=== PATIENT | male | born 1950 | race Caucasian/White ===

== ENCOUNTER 2024-08-14 07:25 | Inpatient (IN) | payer MEDICARE ==
[2024-08-14] VITALS (16 sets, daily range): BP systolic 101–173; BP diastolic 66–75; PULSE 53–80; RESP 13–20; TEMP 97.7; O2SAT 93–98
[~2024-08-14] VITALS: Ht 188 cm; Wt 88.9 kg
[~2024-08-14 07:25] MED LIST: ALBUAER3 IN; AMLO1TAB22 PO; ASPI-378 OR; ATOR20TA PO; ESOM20CA PO; LEVO125T7 PO; LORA-622 PO; MULTTAB5 OR
[2024-08-14] MEDS ORDERED: EPINEPHrine HCL 1 MG/1 ML AMP ONE (09:15)
[2024-08-14] MEDS ORDERED: KETOROLAC TROMETH 30 MG/ML 1ML VIAL ONE (09:17)
[2024-08-14] MEDS ORDERED: TETRACAINE 1% INJ 2 ML VIAL IJ ONE (10:01)
[2024-08-14] MEDS ORDERED: MORPHINE SULF PF 5 MG/10 ML VIAL ONE (10:02)
[2024-08-14] MEDS ORDERED: MIDAZOLAM HCL 2MG/2ML 2ml VIAL (1mg/ml) ONE (10:03)
[2024-08-14] MEDS ORDERED: fentaNYL CITRATE 100 MCG/2 ML VL ONE (10:03)
[2024-08-14] MEDS: CEFEPIME 1GM/ 50ML 50 ML IV ONE (10:17)
[2024-08-14] MEDS: TRANEXAMIC ACID 20 ML ONE (10:17)
[2024-08-14] MEDS ORDERED: PROPOFOL 10 MG/ML 20 ML IV ONE (10:33)
[2024-08-14] MEDS ORDERED: DexAMETHasone SOD PHOS 10MG/1ML VIAL INJ ONE (10:33)
[2024-08-14] MEDS ORDERED: ePHEDrine SULFATE 50 MG/ML AMP IV PRN (10:45)
[2024-08-14] MEDS ORDERED: ONDANSETRON HCL 4 MG/2 ML VIAL IV PRN (10:45)
[2024-08-14] MEDS ORDERED: MIDAZOLAM HCL 2MG/2ML 2ml VIAL (1mg/ml) IV PRN (10:45)
[2024-08-14] MEDS ORDERED: DexAMETHasone SOD PHOS 10MG/1ML VIAL INJ IV PRN (10:45)
[2024-08-14] MEDS ORDERED: HYDROmorphone HCL 2 MG/ML VL/or syr IV PRN (10:45)
[2024-08-14] MEDS ORDERED: hydrALAZINE HCL 20 MG/ML VL IV PRN (10:45)
[2024-08-14] MEDS: VANCOMYCIN HCL 1000 MG VL ONE (11:08)
[2024-08-14] MEDS: ceFAZolin 2 GM/D5W100ml 100 ML IV ONE (11:10)
[2024-08-14] MEDS ORDERED: ROPIVACAINE 0.5% (5MG/ML) 20ML AMPULE IJ ONE (11:18)
--- NOTE | 2024-08-14 12:32 | DVHOP2 ---
Operative Report - 2 Report Details Date: 08/14/24 Preop Diagnosis: Left knee posttraumatic degenerative arthritis Retained ACL hardware Postop Diagnosis: Same Surgeon: Vania Farnsworth MD Traveling Nurse: Zechariah SALMERON Anesthesiologist: Jatinder Anesthesia: General, Local Drains: Ysabel closed wound suction Implant: DonJoy knee size nine femur PS, size nine it tibial base plate, size 14 polyethylene, size 35 patella Consent: The patient was informed of the risks and benefits of the procedure. These include but are not limited to complications of anesthesia, postoperative infection, incomplete relief of symptoms, recurrence of symptoms, damage to blood vessels, nerves and tendons, deep venous thrombosis, pulmonary embolism and possible need for repeat surgery in the future. Complications: None Estimated Blood Loss: 25 cc Fluids: See anesthesia record Findings: Denuded cartilage with eburnated bone, osteophytes, retained interference screw and two melanie Indications for Surgery: Left knee degenerative arthritis with severe pain and functional impairment despite nonoperative management Name of Procedure Performed Left total knee arthroplasty Hardware removal Procedure Details Procedure Details: The patient was brought to the operating room and placed on the table in the supine position after being given spinal anesthetic with adequate analgesia obtained. Surgical timeout was performed verifying patient, laterality and procedure Preop patient received IV cefepime IV Ancef and IV tranexamic acid. Tourniquet was applied to the lower extremity. Extremity was elevated, exsanguinated Esmarch, and tourniquet inflated. Lower extremity was prepped and draped in sterile fashion. Midline incision was made followed by medial arthrotomy. I exposed the anterior medial and lateral tibial plateau and the anterior distal femur. Bovie and aqua mantis were used for hemostasis. I excised the anterior meniscal tissue with Bovie. I excised a portion of the fat pad with Bovie. The patella was everted and the knee flexed. I dissected elevating soft tissue medially and slightly was able to identify the two fixation melanie in the proximal medial tibia. I used a drill and elevators to free up the two melanie which were then easily removed. I drilled the distal femur and suctioned the hole to reduce the risk of fat emboli. I inserted intramedullary guide with 5 degree valgus setting. I pinned the distal femoral cutting block anteriorly. Intramedullary rojelio was removed. Distal femoral cut was made and the block removed. I brought my attention to the tibia setting up the external cutting jig for the tibia paying attention to slope, rotation and varus valgus alignment. I set the depth and pinned the block. I used the external alignment rojelio to aid in checking alignment. Bone cut was made and bone removed releasing soft tissue attachments with Bovie. Cutting block removed. I then checked the extension gap and deemed adequate and removed the femur and tibia pins. I flexed the knee and applied the femoral sizing guide to the femur. I checked the size and external rotation setting at 90 degrees to Whitesides line and checking the epicondylar axis. I drilled the holes then removed the sizing guide and pin. I then tapped on the 4 in 1 cutting block and checked with the keli wing anteriorly to make sure that I would not notch then pinned the block. Cuts were made and the block and pins were removed. Bone was removed with curved osteotome. I used a rongeur to remove any remaining osteophytes at the femur and tibia. I then used a lamina property management assistant to open up the back alternating between the medial and lateral side. Any remaining meniscal tissue was excised with scalpel. I used curved osteotome, curette and rongeur to remove any posterior osteophytes. I prophylactically coagulated with aqua mantis. I then tapped on the template for the box cut and pinned it. Box cut was made and bone removed. At this point the metal interference screw was obvious so I used a drill around the edges of the interference screw and then this way I was able to remove it with Sam. Template and pin removed. I then tapped on the femoral trial. I then brought my attention back to the tibia sizing it. I used the external alignment rojelio to make sure that rotation and alignment were good. I made a Bovie poncho at the tibial tray poncho identifying rotation for later use. I tried various tibial polytrials. [I then brought my attention to the patella. I sequentially dissected soft tissue with Bovie. I checked the thickness with caliper. I set the appropriate depth of cut on the cutting guide. I attached the cutting guide made my cut. I then sized the patella and made my drill holes. I then placed the patella trial with appropriate depth based on overall precut thickness. ] The patella tracked nicely without thumb pressure. I removed the trials. I pinned the tray and used the reamer and keel punch. The implants were brought into the field while bone preparation was started. I used both normal saline irrigation and the CarboJet to prepare the bone. Once cement was ready I applied cement to the tibial implant and tibial bone tapped it on and removed excess cement in usual fashion. In similar fashion I tapped on the femoral implant. I inserted the trial polyethylene and brought the knee into 30 degrees flexion. [I then applied the patella implant in similar fashion holding pressure with the pressurization device.] I irrigated with xperience irrigant. Once cement cured, I checked stability and range of motion as well as patella tracking. tourniquet was released and hemostasis maintained with aqua mantis. I inserted the polyethylene and again checked stability. I used a 2 grams of vancomycin half of which was placed deep and half superficial. I repaired the extensor mechanism with the knee in flexion with #1 Ethibond interrupted [id number]. Deep subcutaneous tissue was closed with 0 Vicryl. Superficial subcutaneous tissue was closed with 2-0 vicryl interrupted. Skin was closed with melanie. I then applied the [ysabel closed wound suction]. Patient tolerated the procedure well and was brought to recovery room in stable condition. Condition Stable Disposition Still a Patient VANIA FARNSWORTH MD Aug 14, 2024 12:32
[2024-08-14] MEDS ORDERED: ALBUTEROL SULF HFA 90MCG INH 200DOSE IN SCH (12:45)
[2024-08-14] MEDS ORDERED: oxyCODONE HCL 5MG TAB PO PRN ×2 (12:45)
[2024-08-14] MEDS ORDERED: ALBUTEROL SULF 2.5 MG/0.5ML(0.5%) NEB SOLN NEB PRN (12:45)
--- NOTE | 2024-08-14 13:07 | DVH ---
CLINICAL INDICATION: Postop TECHNIQUE: XY L KNEE 3V XRAY Comparison: None FINDINGS/IMPRESSION: : No acute fracture or dislocation. Expected findings post left knee arthroplasty.
[2024-08-14] MEDS: D5W/LACTATED RINGERS 1,000 ML IV SCH (14:30)
[2024-08-14] MEDS ORDERED: PHENYLEPHRINE HCL 10 MG/ML VL IV ONE (14:45)
[2024-08-14] MEDS: ACETAMINOPHEN 325 MG TAB PO SCH (18:00)
[2024-08-14] MEDS: KETOROLAC TROMETH 30 MG/ML 1ML VIAL IV SCH (18:00)
[2024-08-14] MEDS: ceFAZolin 2 GM/D5W50ml 50 ML IV SCH (18:46)
[2024-08-14] MEDS: PREGABALIN 25 MG CAP PO SCH (21:39)
[2024-08-15] VITALS (18 sets, daily range): BP systolic 115–141; BP diastolic 51–80; PULSE 54–90; RESP 16–20; TEMP 97.8–98.7; O2SAT 92–97
[2024-08-15] MEDS: LEVOTHYROXINE SODIUM 125 MCG PO SCH (06:17)
[2024-08-15] MEDS: LORATADINE 10 MG TAB PO SCH (09:10)
[2024-08-15] MEDS: ASPirin 81 mg TAB PO SCH (09:11)
[2024-08-15] MEDS: PANTOPRAZOLE 40 MG TAB PO SCH (09:14)
[2024-08-15] MEDS: ACETAMINOPHEN 325 MG TAB PO PRN (09:16)
[2024-08-15] MEDS: ATORVASTATIN 20 MG TAB PO SCH (09:16)
[2024-08-15] MEDS: amLODIPine BESYLATE 5 MG TAB PO SCH (10:08)
--- NOTE | 2024-08-15 14:02 | DVHDS2 ---
Discharge Summary Date of Admission Aug 14, 2024 at 12:56 Date of Discharge: Aug 15, 2024 Admitting Diagnosis Left knee degenerative arthritis Wounds: Left knee surgical wound Brief Hx & Hospital Course: Patient underwent left total knee arthroplasty on date of admission. Was admitted for physical therapy and pain management. He did well with physical therapy and pain is well-controlled. Plan is for discharge to home as per orders. Operations or Procedures Left total knee arthroplasty Hardware removal Condition at Discharge: Stable Final Diagnosis/Problems List Left knee degenerative arthritis s/p total knee arthroplasty Discharge Disposition: Home SNF Discharge Will this Physician continue t: Yes Discharge Instruct/Medications Diet: Regular Activity: Light activity Activity comment: Weight-bearing as tolerated with walker CPM 2 hours 3 times a day. Increase 10 flexion per day as tolerated up until 90 Follow Up/Referral: 10-14 days as scheduled Medications: Hauula and Eliquis prescription sent to pharmacy Discharge Statement: "Patient was advised to return to the ER or call 911 if any headaches, dizziness, shortness of breath, chest pain, abdominal pain, bleeding, fevers, or worsening of medical condition. Patient was counseled about treatment plan, medications, possible side effects, patientverbalized understanding. All questions were answered to the best of my ability. This discharge took greater then 30 minutes in planning, reviewing documentation, counseling the patient, and discussing with other team members." ASSESSMENT ASSESSMENT Assessment Left knee degenerative arthritis s/p total knee arthroplasty VANIA FARNSWORTH MD Aug 15, 2024 14:02
--- NOTE | 2024-08-15 14:04 | DVHPN2 ---
Progress Note - Dictate Date Seen: Aug 15, 2024 Medical Necessity Reason Pt with a Central, PICC or Fol: Yes The following are medically ne: Kramer Catheter Medical Necessity Reason ordered removal for AM Subjective No complaints doing well. vital signs Vital Sign Date Time Temp Pulse Resp B/P (MAP) Pulse Ox O2 Delivery O2 Flow Rate FiO2 08/15/24 13:04 97.8 08/15/24 12:53 61 16 139/70 (93) 95 08/15/24 10:00 Nasal Cannula* 2 28 Total Intake and Output 08/14/24 08/14/24 08/15/24 15:00 23:00 07:00 Intake Total 470 ml 50 ml 2900 ml Output Total 700 ml 100 ml 3200 ml Balance -230 ml -50 ml -300 ml medications Current Medications Medications Dose Ordered Sig/Flory Route Start Time Stop Time Status Last Admin Dose Admin Ondansetron HCl 4 mg Q4HP PRN IV 08/14/24 10:45 Dextrose/Lactated Ringer's 1,000 ml @ 100 mls/hr Q10H IV 08/14/24 12:45 08/15/24 08:45 100 MLS/HR Acetaminophen 650 mg Q4HP PRN PO 08/14/24 12:45 08/15/24 09:16 650 MG Acetaminophen 650 mg Q6HR PO 08/14/24 18:00 08/15/24 13:04 650 MG Ketorolac Tromethamine 15 mg Q6HR IV 08/14/24 18:00 08/19/24 17:59 Pregabalin 50 mg BID PO 08/14/24 22:00 Oxycodone HCl 5 mg Q4HP PRN PO 08/14/24 12:45 Oxycodone HCl 10 mg Q4HP PRN PO 08/14/24 12:45 Aspirin 81 mg BID PO 08/15/24 10:00 08/15/24 09:11 81 MG Amlodipine Besylate 5 mg DAILY PO 08/15/24 10:00 08/15/24 10:08 5 MG Atorvastatin Calcium 20 mg DAILY PO 08/15/24 10:00 08/15/24 09:16 20 MG Loratadine 10 mg DAILY PO 08/15/24 10:00 08/15/24 09:10 10 MG Pantoprazole Sodium 40 mg DAILY PO 08/15/24 10:00 08/15/24 09:14 40 MG Patient Own Medication 125 mcg DAILY@0700 PO 08/15/24 07:00 Albuterol 2.5 mg Q6HPRN PRN NEB 08/14/24 12:45 objective Alert and oriented x4 Dressing dry and intact No calf edema or tenderness Distal neurovascularly intact Assessment/Plan Postop day 1. s/p left total knee arthroplasty Stable postop Plan: Discharge home as per orders Plan discussed with: Patient VANIA FARNSWORTH MD Aug 15, 2024 14:03
[2024-08-15] MEDS ORDERED: LEVOTHYROXINE SODIUM 50 MCG TAB PO SCH (15:00)
== END 2024-08-15 17:35 | disposition home or self-care (01) | DRG 468 ==
LOC: SUR 07:25 → TELE 12:56 → TELE-CENTR 14:36 → TELE 08-15 14:47 → CENTRAL 08-15 14:52
PROVIDERS: ADMIT Orthopaedic Surgery; ATTEND Orthopaedic Surgery
PROC: 0SRD0J9 Replacement of Left Knee Joint with Synthetic Substitute, Cemented, Open Approach (ICD-10-PCS; 2024-08-14)
PROC: 0SPD0JZ Removal of Synthetic Substitute from Left Knee Joint, Open Approach (ICD-10-PCS; principal; 2024-08-14 10:17)
DX: M17.32 Unilateral post-traumatic osteoarthritis, left knee (principal)
CPT/HCPCS: 73562; 86850; 86900; 86901; 97110; 97116; 97163; 97530; G0378; J0171; J1100; J1885; J2250; J2704

== ENCOUNTER 2025-03-21 06:19 | Inpatient (IN) | payer MEDICARE ==
[2025-03-19 07:23] LABS: Hematocrit 47.0 % (41.0-53.0); Hemoglobin 16.4 g/dL (13.5-17.5); Mean Corpuscular Hemoglobin 33.4 pg (28.0-32.0); Mean Corpuscular Volume 96.2 fL (80.0-100.0); Nucleated Red Blood Cells % 0.1 %
[2025-03-19 07:32] LABS: Urine Protein, UAD Negative (Negative)
[2025-03-19 07:50] LABS: INR 1.09 (0.9-1.15); Partial Thromboplastin Time 27.6 SEC (24.5-34.5); Prothrombin Time 11.5 sec (9.3-11.8)
[2025-03-19 08:09] LABS: Alanine Aminotransferase 27 U/L (7-40); Albumin 4.5 g/dL (3.2-4.8); Alkaline Phosphatase 95 U/L (46-116); Anion Gap 9 (5-15); BUN/Creatinine Ratio 8.6 (10.0-20.0); Blood Urea Nitrogen 10 mg/dL (9-23); Calcium 9.3 mg/dL (8.7-10.4); Carbon Dioxide 28 mmol/L (20-31); Chloride 102 mmol/L (98-107); Potassium 4.0 mmol/L (3.5-5.1); Sodium 139 mmol/L (136-145); Total Protein 7.7 g/dL (5.7-8.2)
[2025-03-19 08:10] LABS: Bilirubin, Total 0.7 mg/dL (0.2-1.0); Glucose 109 mg/dL (74-106)
[~2025-03-21] VITALS: Ht 188 cm; Wt 99.0 kg
[2025-03-21] VITALS (19 sets, daily range): BP systolic 124–158; BP diastolic 58–88; PULSE 60–95; RESP 12–18; TEMP 97.3–98.8; O2SAT 91–97
[~2025-03-21 06:19] MED LIST changes: +ACET-1079 PO; +IBU600T PO; +LACTCAP35 OR; +MISC450C OR; -MULTTAB5 OR
[2025-03-21] MEDS ORDERED: fentaNYL CITRATE 100 MCG/2 ML VL ONE (07:23)
[2025-03-21] MEDS ORDERED: MIDAZOLAM HCL 2MG/2ML 2ml VIAL (1mg/ml) ONE (07:23)
[2025-03-21] MEDS ORDERED: LIDOCAINE W/ EPINEPHRINE 1% 20ML VIAL ONE (07:23)
[2025-03-21] MEDS ORDERED: METOCLOPRAMIDE HCL 5MG/ml INJ 2ml VIAL ONE (07:23)
[2025-03-21] MEDS ORDERED: ONDANSETRON HCL 4 MG/2 ML VIAL ONE (07:23)
[2025-03-21] MEDS ORDERED: MORPHINE SULF PF 5 MG/10 ML VIAL ONE (07:24)
[2025-03-21] MEDS ORDERED: BUPIVACAINE/DEXTROSE MPF 0.75% 2 ML AMP IT ONE (07:26)
[2025-03-21] MEDS ORDERED: PROPOFOL 10 MG/ML 20 ML IV ONE (08:00)
[2025-03-21] MEDS: CEFEPIME 1GM/50ML 50 ML IV ONE (08:25)
[2025-03-21] MEDS: ceFAZolin 2 GM/D5W50ml 50 ML IV ONE (08:30)
[2025-03-21] MEDS: TRANEXAMIC ACID 20 ML ONE (08:30)
[2025-03-21] MEDS: VANCOMYCIN HCL 1000 MG VL ONE (08:49)
--- NOTE | 2025-03-21 09:06 | DVHOP2 ---
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 These include but are not limited to complications of anesthesia, postoperative infection, incomplete relief of symptoms, recurrence of symptoms, damage to blood vessels, nerves and tendons, deep venous thrombosis, pulmonary embolism and possible need for repeat surgery in the future. Complications: None Estimated Blood Loss: 25 cc Fluids: See anesthesia record Findings: Increased excursion on anterior drawer. Range of motion 0-120. No evidence of mediolateral instability. Indications for Surgery: Right knee pain and instability s/p total knee arthroplasty Name of Procedure Performed Revision right total knee polyethylene implant Procedure Details Procedure Details: Patient was brought to the operating room and given spinal anesthetic with adequate analgesia obtained. Preop patient received IV Ancef, tranexamic acid, cefepime. Tourniquet was applied to the left thigh. Left lower extremity was prepped and draped in sterile fashion. Surgical time-out was performed verifying patient, laterality, and procedure. Extremity was elevated, exsanguinated, and tourniquet inflated to 250 mm of Hg. I performed a midline incision utilizing the previous incision that was extended a couple cm in each direction to facilitate dissection planes. I used a Bovie to carefully elevate the subcutaneous tissue off the underlying extensor mechanism and fascia. I then used the previous medial arthrotomy. I performed releases in the gutters with Bovie. I performed release of the anterior mediolateral tibial plateau capsule to gain exposure to the anterior knee. I was then able to remove the polyethylene with osteotome. I inserted a size 14 constrained polyethylene trial and performed exam. Patient had good range of motion and normal anterior- posterior excursion. There was no evidence of mediolateral instability. I then inserted the polyethylene implant and made sure there was no tissue caught medially or laterally at the implant plate junction. Tourniquet was released and hemostasis performed with aqua Mantis. I irrigated copiously with antibacterial irrigant. The extensor mechanism was closed with the knee in flexion utilizing 1. Ethibond interrupted [id number]. Deep subcu was closed with 0 Vicryl. Superficial subQ was closed with 2-0 Vicryl. Skin was closed with melanie. The wound was dressed sterilely applying the closed wound ysabel. Condition Stable Disposition Still a Patient VANIA FARNSWORTH MD Mar 21, 2025 09:06
[2025-03-21] MEDS ORDERED: ALBUTEROL SULF HFA 90MCG INH 200DOSE IN SCH (09:15)
[2025-03-21] MEDS ORDERED: ACETAMINOPHEN 325 MG TAB PO PRN (09:15)
[2025-03-21] MEDS ORDERED: NALOXONE HCL 0.4 MG/ML VIAL IV PRN (09:30)
[2025-03-21] MEDS ORDERED: ONDANSETRON HCL 4 MG/2 ML VIAL IV PRN (09:30)
[2025-03-21] MEDS ORDERED: diphenhdrAMINE HCL 50 MG/1 ML VL IV PRN (09:30)
--- NOTE | 2025-03-21 09:54 | DVH ---
EXAM: XY L KNEE 3V XRAY HISTORY: Postop COMPARISON: XR KNEE LEFT 3 VIEW on DOS: 03/01/25, XR KNEE LEFT 3 VIEW on DOS: 11/28/24, XR KNEE LEFT 4- 5 VIEW on DOS: 09/29/24 TECHNIQUE: 3 views of the left knee were performed. FINDINGS: There is a total knee replacement. The components are well aligned and well seated. Patella has been resurfaced. No periprosthetic fracture. There is subcutaneous edema and emphysema related to the fredy nara. IMPRESSION: 1. Total knee replacement in satisfactory alignment and without evidence of immediate complication.
[2025-03-21] MEDS: PREGABALIN 25 MG CAP PO SCH (10:00)
[2025-03-21] MEDS: LORATADINE 10 MG TAB PO SCH (10:00)
[2025-03-21] MEDS: ATORVASTATIN 20 MG TAB PO SCH (10:00)
[2025-03-21] MEDS ORDERED: PATIENTS OWN MEDICATION (Levothyroxine Sodium 125 MCG) PO SCH (10:00)
[2025-03-21] MEDS: PANTOPRAZOLE 40 MG TAB PO SCH (10:00)
[2025-03-21] MEDS ORDERED: ESOMEPRAZOLE 20 MG PO SCH (10:00)
[2025-03-21] MEDS: BUPIVACAINE 0.25% INJ 50ML VIAL ONE (10:29)
[2025-03-21] MEDS: ROPIVACAINE 0.5% (5MG/ML) 20ML AMPULE IJ ONE (10:29)
[2025-03-21] MEDS: ACETAMINOPHEN IV 1000 MG/100ML (10MG/ML) IV ONE (10:33)
[2025-03-21] MEDS ORDERED: ALBUTEROL SULF 2.5 MG/0.5ML(0.5%) NEB SOLN NEB PRN (10:45)
[2025-03-21] MEDS: D5W/LACTATED RINGERS 1,000 ML IV SCH (10:53)
[2025-03-21] MEDS: KETOROLAC TROMETH 30 MG/ML 1ML VIAL IV SCH (12:00)
[2025-03-21] MEDS: ACETAMINOPHEN 325 MG TAB PO SCH (12:00)
[2025-03-21] MEDS: ceFAZolin 2 GM/D5W50ml 50 ML IV SCH (15:10)
--- NOTE | 2025-03-21 21:38 | DVH ---
CLINICAL HISTORY: Redness, swelling, History of lower extremity DVT TECHNIQUE: Color and duplex doppler imagine of the bilateral lower extremity veins was performed. Ves lita compression and augmentation if possible was also performed. COMPARISON: VAS VENOUS LOWER EXTREM LEFT on DOS: 12/01/24, VAS VENOUS LOWER EXTREM LEFT on DOS: FINDINGS: Right Lower Extremity: Right common femoral vein: Normal compressibility and flow. Right superficial femoral vein: Normal compressibility and flow. Right popliteal vein: Normal compressibility and flow. Proximal calf veins demonstrate flow. Left Lower Extremity: Left common femoral vein: Normal compressibility and flow. Left superficial femoral vein: Normal compressibility and flow. Left popliteal vein: Not see due to overlying bandage. Proximal calf veins demonstrate flow. IMPRESSION: NO SONOGRAPHIC EVIDENCE FOR DEEP VENOUS THROMBOSIS IN THE VISUALIZED BILATERAL LOWER EXTREMITY VEINS.
[2025-03-22] VITALS (20 sets, daily range): BP systolic 110–152; BP diastolic 62–86; PULSE 55–66; RESP 16–18; TEMP 96.5–98.2; O2SAT 91–97
[2025-03-22] MEDS: LEVOTHYROXINE SODIUM 25 MCG TAB PO SCH (06:13)
[2025-03-22] MEDS: LEVOTHYROXINE SODIUM 100 MCG TAB PO SCH (06:13)
[2025-03-22 06:27] LABS: Anion Gap 7 (5-15); Carbon Dioxide 28 mmol/L (20-31); Chloride 102 mmol/L (98-107); Potassium 4.2 mmol/L (3.5-5.1); Sodium 137 mmol/L (136-145)
[2025-03-22 06:28] LABS: Calcium 9.2 mg/dL (8.7-10.4)
[2025-03-22 06:33] LABS: BUN/Creatinine Ratio 13.0 (10.0-20.0); Blood Urea Nitrogen 14 mg/dL (9-23)
[2025-03-22 06:37] LABS: Glucose 150 mg/dL (74-106)
[2025-03-22 06:51] LABS: Hematocrit 41.3 % (41.0-53.0); Hemoglobin 14.2 g/dL (13.5-17.5); Mean Corpuscular Hemoglobin 32.9 pg (28.0-32.0); Mean Corpuscular Volume 95.8 fL (80.0-100.0); Nucleated Red Blood Cells % 0.0 %
[2025-03-22] MEDS: RIVAROXABAN 10 MG TAB PO SCH (09:38)
--- NOTE | 2025-03-22 16:26 | DVHDS2 ---
Discharge Summary Date of Admission Mar 21, 2025 at 09:16 Date of Discharge: Mar 22, 2025 Labs/Diagnostic Data: Laboratory Results Test 03/22/25 05:47 03/19/25 06:55 White Blood Count 18.3 10^3/uL (4.4-10.8) Red Blood Count 4.31 10^6/uL (4.5-5.90) Hemoglobin 14.2 g/dL (13.5-17.5) Hematocrit 41.3 % (41.0-53.0) Mean Corpuscular Volume 95.8 fL (80.0-100.0) Mean Corpuscular Hemoglobin 32.9 pg (28.0-32.0) Mean Corpuscular Hemoglobin Concent 34.4 g/dL (32.0-36.0) Red Cell Distribution Width 14.0 % (11.8-14.3) Platelet Count 210 10^3/uL (140-450) Mean Platelet Volume 8.7 fL (6.9-10.8) Neutrophils (%) (Auto) 86.5 % (37.0-80.0) Lymphocytes (%) (Auto) 7.9 % (10.0-50.0) Monocytes (%) (Auto) 5.5 % (0.0-12.0) Eosinophils (%) (Auto) 0.0 % (0.0-7.0) Basophils (%) (Auto) 0.1 % (0.0-2.0) Neutrophils # (Auto) 15.8 10 ^3/uL (1.6-8.6) Lymphocytes # (Auto) 1.4 10 ^3/uL (0.4-5.4) Monocytes # (Auto) 1.0 10 ^3/uL (0-1.3) Eosinophils # (Auto) 0 10 ^3/uL (0-0.8) Basophils # (Auto) 0 10 ^3/uL (0-0.2) Nucleated Red Blood Cells 0.0 % Sodium Level 137 mmol/L (136-145) Potassium Level 4.2 mmol/L (3.5-5.1) Chloride Level 102 mmol/L (98-107) Carbon Dioxide Level 28 mmol/L (20-31) Anion Gap 7 (5-15) Blood Urea Nitrogen 14 mg/dL (9-23) Creatinine 1.08 mg/dL (0.700-1.30) Glomerular Filtration Rate Calc 73 mL/min (>90) BUN/Creatinine Ratio 13.0 (10.0-20.0) Serum Glucose 150 mg/dL (74-106) Calcium Level 9.2 mg/dL (8.7-10.4) Prothrombin Time 11.5 sec (9.3-11.8) Prothrombin Time INR 1.09 (0.9-1.15) Activated Partial Thromboplast Time 27.6 SEC (24.5-34.5) Urine Color Light-yellow (Yellow) Urine Clarity Clear (Clear) Urine pH 5.5 (5.0-9.0) Urine Specific [place] 1.012 (1.001-1.035) Urine Protein Negative (Negative) Urine Ketones Negative (Negative) Urine Blood Trace /uL (Negative) Urine Nitrite Negative (Negative) Urine Bilirubin Negative (Negative) Urine Urobilinogen Normal mg/dL (Negative) Urine Leukocyte Esterase Negative /uL (Negative) Urine RBC 2 /hpf (0 - 3) Urine Microscopic WBC 1 /HPF (0-3) Urine Squamous Epithelial Cells None seen /hpf (<5) Urine Bacteria None seen /hpf (None Seen) Urine Glucose Normal mg/dL (Normal) Total Bilirubin 0.7 mg/dL (0.2-1.0) Aspartate Amino Transferase (AST) 25 U/L (13-40) Alanine Aminotransferase (ALT) 27 U/L (7-40) Alkaline Phosphatase 95 U/L (46-116) Total Protein 7.7 g/dL (5.7-8.2) Albumin 4.5 g/dL (3.2-4.8) Other Laboratory Tests 03/22/25 05:47 Brief Hx & Hospital Course: Patient was brought to the hospital yesterday to undergo a left total knee arthroplasty revision with poly implant exchange, she tolerated the procedure well without complications and was kept overnight for postoperative observation. Patient has remained medically stable denying any overnight events and reports that he was able to get up and walk with the help of physical therapy and his walker and was able to get down the samano around the nurses station and back to his bed with only some mild postoperative knee pain. Patient is otherwise feeling well denying any other complaint or concern during my evaluation and is ready to go home. 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 Discharge Disposition: Home Discharge Instruct/Medications Diet: Regular Activity: See Comment Activity comment: Patient to remain weight-bearing as tolerated with the assistance of a walker Follow Up/Referral: Patient instructed our office in 10-14 days for his 1st postoperative evaluation Medications: Rx sent via our outpatient EMR system Scheduled Acetaminophen (Tylenol), 500 MG PO PRN, (Reported) Albuterol Sulfate (Ventolin Mdi), 90 MCG IN PRN, (Reported) Amlodipine Besylate (Amlodipine Besylate), 5 MG PO DAILY, (Reported) Aspirin (Suly Aspirin Ec Low Dose), 81 MG OR DAILY, (Reported) Atorvastatin Calcium (Lipitor), 20 MG PO DAILY, (Reported) Esomeprazole Magnesium Trihydr (Nexium), 20 MG PO DAILY, (Reported) Levothyroxine Sodium (Levothyroxine Sodium), 125 MCG PO DAILY, (Reported) Loratadine (Claritin), 10 MG PO DAILY, (Reported) Misc Natural Products ([place]), 450 MG OR TID, (Reported) Scheduled PRN Ibuprofen Micronized (Motrin Tablet), 600 MG PO TID PRN for prn, (Reported) Miscellaneous Medications Lactobacillus (Probiotic), 1 OR, (Reported) Discharge Statement: "Patient was advised to return to the ER or call 911 if any headaches, dizziness, shortness of breath, chest pain, abdominal pain, bleeding, fevers, or worsening of medical condition. Patient was counseled about treatment plan, medications, possible side effects, patientverbalized understanding. All questions were answered to the best of my ability. This discharge took greater then 30 minutes in planning, reviewing documentation, counseling the patient, and discussing with other team members." ASSESSMENT ASSESSMENT Assessment left knee instability s/p total knee arthroplasty MYLENE CUI Mar 22, 2025 16:26
--- NOTE | 2025-03-22 16:29 | DVHPN2 ---
Progress Note - Dictate Date Seen: Mar 22, 2025 Medical Necessity Reason Pt with a Central, PICC or Fol: No Subjective Patient was lying comfortably in bed during my evaluation reports some postoperative knee pain but patient notes that it is much less than his 1st surgery. Patient reports that he was able to get up and walk with the help of physical therapy and his walker and was able to get down the samano around the nurses station and back to his bed with some postoperative knee pain that was otherwise tolerable. Patient is otherwise feeling well denying any other complaints or concerns during my evaluation and is ready to go home. vital signs Vital Sign Date Time Temp Pulse Resp B/P (MAP) Pulse Ox O2 Delivery O2 Flow Rate FiO2 03/22/25 13:41 66 16 95 03/22/25 13:23 96.5 03/22/25 13:00 134/74 (94) 03/22/25 08:00 Room Air* 0 21 Total Intake and Output 03/21/25 03/21/25 03/22/25 15:00 23:00 07:00 Intake Total 120 ml 400 ml 1250 ml Output Total 150 ml 350 ml 700 ml Balance -30 ml 50 ml 550 ml medications Current Medications Medications Dose Ordered Sig/Flory Route Start Time Stop Time Status Last Admin Dose Admin Amlodipine Besylate 5 mg DAILY PO 03/21/25 10:00 Atorvastatin Calcium 20 mg DAILY PO 03/21/25 10:00 Loratadine 10 mg DAILY PO 03/21/25 10:00 03/22/25 09:39 10 MG Patient Own Medication 20 mg DAILY PO 03/21/25 10:00 Cancel Patient Own Medication 125 mcg DAILY PO 03/21/25 10:00 UNV Rivaroxaban 10 mg DAILY PO 03/22/25 10:00 03/22/25 09:38 10 MG Dextrose/Lactated Ringer's 1,000 ml @ 100 mls/hr Q10H IV 03/21/25 09:15 03/22/25 06:13 100 MLS/HR Acetaminophen 650 mg Q4HP PRN PO 03/21/25 09:15 Acetaminophen 650 mg Q6HR PO 03/21/25 12:00 03/22/25 12:23 650 MG Ketorolac Tromethamine 15 mg Q6HR IV 03/21/25 12:00 03/26/25 11:59 03/22/25 12:23 15 MG Pregabalin 50 mg BID PO 03/21/25 10:00 03/22/25 09:38 50 MG Oxycodone HCl 5 mg Q4HP PRN PO 03/21/25 09:15 Oxycodone HCl 10 mg Q4HP PRN PO 03/21/25 09:15 Diphenhydramine HCl 25 mg Q4HP PRN IV 03/21/25 09:30 Ondansetron HCl 4 mg Q4HP PRN IV 03/21/25 09:30 Pantoprazole Sodium 40 mg DAILY PO 03/21/25 10:00 03/22/25 09:39 40 MG Levothyroxine Sodium 100 mcg QAM@0600 PO 03/22/25 06:00 03/22/25 06:13 100 MCG Levothyroxine Sodium 25 mcg QAM@0600 PO 03/22/25 06:00 03/22/25 06:13 25 MCG Albuterol 2.5 mg Q6HPRN PRN NEB 03/21/25 10:45 objective A&O x4 in no acute distress Knee range of motion grossly limited with pain on movement Jesika dressing clean, dry, intact, and maintaining suction No distal edema or calf tenderness to palpation Neurovascularly intact with cap refill less than 2 seconds laboratory and microbiology Laboratory Tests 03/22/25 05:47 Test 03/22/25 05:47 Range/Units Serum Glucose 150 H 74-106 mg/dL Assessment/Plan Patient to be discharged home and advised to remain weight-bearing as tolerated with the assistance of a walker. I instructed the patient to maintain his dressings clean, dry, intact, and maintaining suction and to call our office to schedule his 1st postoperative evaluation approximately 10-14 days and to call us if he has any further questions or concerns. Rx sent via our outpatient EMR system. Patient understood and agreed. Plan discussed with: Patient MYLENE CUI Mar 22, 2025 16:29
== END 2025-03-22 17:20 | disposition home or self-care (01) | DRG 468 ==
LOC: SUR 06:19 → OVERFLOW 09:08 → UNDOADMIN 09:08 → OVERFLOW 09:16 → TELE-CENTR 13:45
PROVIDERS: ADMIT Orthopaedic Surgery; ATTEND Orthopaedic Surgery
PROC: 0SPW0JZ Removal of Synthetic Substitute from Left Knee Joint, Tibial Surface, Open Approach (ICD-10-PCS; 2025-03-21)
PROC: 0SRW0JZ Replacement of Left Knee Joint, Tibial Surface with Synthetic Substitute, Open Approach (ICD-10-PCS; principal; 2025-03-21 07:36)
DX: T84.023A Instability of internal left knee prosthesis, initial encounter (principal); Z96.652 Presence of left artificial knee joint; Y83.8 Other surgical procedures as the cause of abnormal reaction of the patient, or of later complication, without mention of misadventure at the time of the procedure
CPT/HCPCS: 36415; 73562; 80048; 80053; 81001; 85025; 85610; 85730; 86850; 86900; 86901; 93970; 97110; 97116; 97163; G0378; J1100; J1885; J2250; J2405; J2704; J3490